=== PATIENT | male | born 1985 | race Caucasian/White ===

== ENCOUNTER 2020-03-29 23:11 | Emergency (ER) | payer OTHER ==
[2020-03-30] MEDS ORDERED: DIPH/PERTUSS(ACELL)/TETANUS VAC/PF 0.5 ML SYR (>=10YO) IM ONE (01:34)
--- NOTE | 2020-03-30 01:34 | ER Document Report ---
ED General - General Chief Complaint: Finger Injury Stated Complaint: FINGER INJURY Time Seen by Provider: 03/30/20 01:33 - HPI Notes: 34-year-old male presents with injury to his left index finger. Patient states around 9 PM he reached into a tool bag and accidentally cut himself on a marcelina razor blade that was at the bottom of the bag. He was in the process of replacing shelves. He states that he needs a tetanus shot, this is his main reason for ED visit. He denies pain to the area. He dressed his wound with painters tape. - Related Data Allergies/Adverse Reactions: No Known Allergies Allergy (Unverified 03/30/20 00:48) Home Medications: Trazadone, Saboxone Past Medical History - Social History Smoking Status: Current Every Day Smoker Frequency of alcohol use: Rare Drug Abuse: Marijuana Family History: Reviewed & Not Pertinent Patient has homicidal ideation: No Review of Systems - Review of Systems Constitutional: No symptoms reported EENT: No symptoms reported Cardiovascular: No symptoms reported Respiratory: No symptoms reported Gastrointestinal: No symptoms reported Genitourinary: No symptoms reported Musculoskeletal: denies: Joint pain Skin: See HPI Neurological/Psychological: No symptoms reported Physical Exam - Vital signs Vitals: Temp Pulse Resp BP Pulse Ox 98.8 F 53 L 16 123/72 98 03/29/20 23:31 03/29/20 23:31 03/29/20 23:31 03/29/20 23:31 03/29/20 23:31 - General General appearance: Appears well, Alert In distress: None - HEENT Head: Normocephalic, Atraumatic Pupils: PERRL - Respiratory Respiratory status: No respiratory distress - Cardiovascular Rhythm: Regular - Abdominal Inspection: No: Obese - Extremities Notes: Superficial 0.5 cm laceration to fingertip of the left index finger. No active bleeding. Full range of motion to left finger, sensation intact - Neurological Neuro grossly intact: Yes Orientation: AAOx4 - Psychological Associated symptoms: Normal affect - Skin Skin Temperature: Warm Course - Re-evaluation Re-evalutation: 03/30/20 01:49 34-year-old male sustained a superficial small laceration to fingertip of the left index finger, cut on a marcelina razor blade per his report. He is neurovascularly intact. No active bleeding. I offered to repair wound with Dermabond or Steri-Strips, patient declined wound repair. Tetanus will be given. Wound care was discussed with patient. Stable at time of discharge. - Vital Signs Vital signs: Temp Pulse Resp BP Pulse Ox 98.8 F 53 L 16 123/72 98 03/29/20 23:31 03/29/20 23:31 03/29/20 23:31 03/29/20 23:31 03/29/20 23:31 Discharge - Discharge Clinical Impression: Laceration, Tetanus toxoid vaccination administered at current visit Condition: Stable Disposition: HOME, SELF-CARE Instructions: Laceration Care ([facility]) Additional Instructions: Please be sure to keep wound clean and dry, you may apply antibiotic ointment, keep covered. Be sure to throw out that razor blade. Follow-up with your primary care doctor as needed. Return to the emergency department for any concerning worsening symptoms.
[2020-03-30 02:26] VITALS: BP 130/71
== END 2020-03-30 02:26 | disposition home or self-care (01) ==
LOC: ER 23:11
DX: S61.211A Laceration without foreign body of left index finger without damage to nail, initial encounter (principal); W27.8XXA Contact with other nonpowered hand tool, initial encounter; F17.200 Nicotine dependence, unspecified, uncomplicated; Z23 Encounter for immunization
CPT/HCPCS: 90471; 90715; 99283